=== PATIENT | male | born 1995 | race Caucasian/White ===

== ENCOUNTER 2020-01-21 13:39 | Emergency (ER) | payer MEDICAID ==
[~2020-01-21] VITALS: Ht 185.4 cm; Wt 75.0 kg
[2020-01-21] MEDS ORDERED: RIVA15T PO (13:42)
[2020-01-21 13:46] VITALS: BP 139/59
== END 2020-01-21 14:47 | disposition left against medical advice (07) ==
LOC: EMS 13:42
DX: I82.409 Acute embolism and thrombosis of unspecified deep veins of unspecified lower extremity (principal); Z53.21 Procedure and treatment not carried out due to patient leaving prior to being seen by health care provider